=== PATIENT | female | born 1980 | race Caucasian/White ===

== ENCOUNTER 2017-05-11 23:29 | Emergency (ER) | payer OTHER ==
[~2017-05-11] VITALS: Ht 167.6 cm; Wt 78.2 kg
[~2017-05-11 23:29] MED LIST: ACETAMINOPHEN500 MG PO; ADVAIR HFA120 INHALA IH; CAFFEINE200 M1 PO; CHOLESTROL MED; CIPRO500 MG PO; FLAGYL500 MG PO; FLORASTOR250 MG PO; LEVAQUIN500 MG PO; MOTRIN600 MG PO; NICOTINE PATCH1 EAC2 TD; PAXIL10 MG PO; PAXIL40 MG PO; PERCOCET 5/31 TABLET PO; PHENERGAN-CODE120 ML PO; PREDNISONE10 MG PO; PROAIR HFA8.5 GM IH; PROMETHAZINE HC25 M1 PO; ROBITUSSIN AC,T10 ML PO; TYLENOL EXTRA500 MG PO; TYLENOL PM1 CAPLET PO
[2017-05-12 00:40] LABS: HEMATOCRIT 39.2 % (36.0-46.0); MCH 31.3 PG (29.0-34.0); MCHC 33.4 G/DL (30.0-36.0); MCV 93.6 FL (83-99); MEAN PLAT.VOLUME 9.5 uM^3 (9.5-12.4); PLATELET COUNT 430 K/uL (156-360); RBC DIS.WIDTH-CV 12.6 % (11.8-14.6); RBC DIS.WIDTH-SD 43.5 % (39-53); RED BLOOD COUNT 4.19 M/uL (3.80-5.20); WHITE BLOOD COUNT 14.6 K/uL (4.1-10.2)
[2017-05-12 01:05] LABS: QUANTITATIVE HCG < 4.0 MIU/ML
[2017-05-12 01:14] LABS: ADD MIUA? YES; BILIRUBIN NEGATIVE; BLOOD SMALL; COLOR STRAW ((YELLOW)); GLUCOSE (STRIP) NEGATIVE; KETONES NEGATIVE; LEUKOCYTES NEGATIVE; NITRITE NEGATIVE; PROTEIN (STRIP) NEGATIVE; SPECIFIC GRAVITY 1.005 (1.000-1.030); UROBILINOGEN 0.2 MG/DL (0.2-1.0)
[2017-05-12 01:37] LABS: BACTERIA RARE /HPF; EPITHELIAL CELLS RARE /HPF; MUCUS NONE SEEN /LPF; RED BLOOD CELLS 0-5 /HPF (0-5); UCUL ADDED? NO; WHITE BLOOD CELLS 0-5 /HPF (0-5)
[2017-05-12 01:39] LABS: ALKALINE PHOSPHATASE 76 IU/L (3-129); ANION GAP 10 MEQ/L (2-14); CHLORIDE 108 MEQ/L (99-109); GFR ESTIMATE (CALCULATED) > 59 mL/min/; GLUCOSE 85 mg/dL (70-99); POTASSIUM 3.4 MEQ/L (3.7-5.4); SAMPLE HEMOLYSIS CHECK 0; SAMPLE ICTERIC CHECK 0; SAMPLE LIPEMIA CHECK 0; SODIUM 141 MEQ/L (136-147); TOTAL BILIRUBIN 0.2 MG/DL (0.0-1.0); UREA NITROGEN (BUN) 9 mg/dL (9-23)
[2017-05-12] MEDS ORDERED: ZANTAC300 MG PO (03:02)
[2017-05-12] MEDS ORDERED: NEXIUM20 MG PO (03:02)
[2017-05-12 03:08] LABS: SALICYLATE 10.5 MG/DL (15-30)
[2017-05-12 03:09] LABS: LIPASE 25 U/L (1.0-51.0)
[2017-05-12 04:00] VITALS: BP 131/78
== END 2017-05-12 04:16 | disposition home or self-care (01) ==
LOC: EME 23:29
DX: R10.10 Upper abdominal pain, unspecified (principal); F17.200 Nicotine dependence, unspecified, uncomplicated; F41.9 Anxiety disorder, unspecified; F32.9 Major depressive disorder, single episode, unspecified
CPT/HCPCS: 80053; 81003; 83690; 84702; 85027; 99281; 99284; G0480

== ENCOUNTER 2018-01-08 21:44 | Emergency (ER) | payer OTHER ==
[~2018-01-08] VITALS: Ht 167.6 cm; Wt 80.5 kg
[~2018-01-08 21:44] MED LIST changes: +NEXIUM20 MG PO; +ZANTAC300 MG PO
[2018-01-08] MEDS ORDERED: GABAPENTIN100 MG PO (22:01)
[2018-01-08] MEDS ORDERED: VENTOLIN HFA18 GM IH (22:02)
[2018-01-08] MEDS ORDERED: ESCITALOPRAM OXA5 MG PO (22:02)
[2018-01-08] MEDS ORDERED: MEDROL DOSEPAK4 MG PO (23:35)
[2018-01-08] MEDS ORDERED: ZITHROMAX Z-PA250 MG PO (23:35)
[2018-01-08 23:47] VITALS: BP 151/83
== END 2018-01-08 23:49 | disposition home or self-care (01) ==
LOC: EME 21:44
DX: J20.9 Acute bronchitis, unspecified (principal); F32.9 Major depressive disorder, single episode, unspecified; F41.9 Anxiety disorder, unspecified; F17.210 Nicotine dependence, cigarettes, uncomplicated; Z79.51 Long term (current) use of inhaled steroids; Z87.01 Personal history of pneumonia (recurrent)
CPT/HCPCS: 71046; 94640; 94640 76; 99281; 99284; J7512

== ENCOUNTER 2018-01-14 14:00 | Emergency (ER) | payer OTHER ==
[~2018-01-14] VITALS: Ht 167.6 cm; Wt 79.9 kg
[~2018-01-14 14:00] MED LIST changes: +ESCITALOPRAM OXA5 MG PO; +GABAPENTIN100 MG PO; +MEDROL DOSEPAK4 MG PO; +VENTOLIN HFA18 GM IH; +ZITHROMAX Z-PA250 MG PO
[2018-01-14 14:54] LABS: BASOPHIL (%) 0.3 % (0-1); BASOPHIL COUNT 0.1 K/uL (0-0.1); EOSINOPHIL (%) 0.1 % (0-5); HEMATOCRIT 42.5 % (36.0-46.0); HEMOGLOBIN 14.2 G/DL (11.9-15.5); IMMATURE GRANULOCYTE (%) 0.8 % (0.0-0.7); LYMPHOCYTE (%) 12.1 % (15-42); LYMPHOCYTE COUNT 2.8 K/uL (1.0-2.8); MCH 33.6 PG (29.0-34.0); MCHC 33.4 G/DL (30.0-36.0); MCV 100.7 FL (83-99); MONOCYTE (%) 2.9 % (3-12); MONOCYTE COUNT 0.7 K/uL (0-0.8); NEUTROPHIL (%) 83.8 % (45-76); NEUTROPHIL COUNT 19.7 K/uL (1.8-6.4); PLATELET COUNT 481 K/uL (156-360); RBC DIS.WIDTH-CV 12.6 % (11.8-14.6); RBC DIS.WIDTH-SD 47.1 % (39-53); RED BLOOD COUNT 4.22 M/uL (3.80-5.20); WHITE BLOOD COUNT 23.5 K/uL (4.1-10.2)
[2018-01-14 15:03] LABS: ALBUMIN 4.6 g/dL (3.2-4.8); CHLORIDE 103 mEq/L (99-109); SODIUM 139 mEq/L (136-147)
[2018-01-14 15:04] LABS: MAGNESIUM 2.5 mg/dL (1.3-2.7)
[2018-01-14 15:06] LABS: GLUCOSE 132 mg/dL (70-99); TOTAL PROTEIN 7.8 g/dL (6.4-8.3)
[2018-01-14 15:08] LABS: TOTAL BILIRUBIN 0.2 mg/dL (0.0-1.0)
[2018-01-14 15:09] LABS: ALKALINE PHOSPHATASE 93 IU/L (3-129)
[2018-01-14 15:10] LABS: CREATININE 0.8 mg/dL (0.6-1.3); GFR ESTIMATE (CALCULATED) > 59 mL/min/
[2018-01-14 15:11] LABS: AST (GOT) 11 IU/L (2-34); UREA NITROGEN (BUN) 17 mg/dL (9-23)
[2018-01-14 15:13] LABS: ALT (GPT) 13 IU/L (3-49)
[2018-01-14 15:16] LABS: TROP-I INTERPRETATION NEGATIVE; TROPONIN-I < 0.01 ng/mL (0.0-0.30)
[2018-01-14 15:18] LABS: QUANTITATIVE HCG < 4.0 MIU/ML
[2018-01-14] MEDS ORDERED: PREDNISONE20 MG PO (18:03)
[2018-01-14 18:11] VITALS: BP 135/72
== END 2018-01-14 18:11 | disposition home or self-care (01) ==
LOC: EME 14:00
PROVIDERS: Emergency Medicine
DX: J44.1 Chronic obstructive pulmonary disease with (acute) exacerbation (principal); F41.9 Anxiety disorder, unspecified; F17.210 Nicotine dependence, cigarettes, uncomplicated; F32.9 Major depressive disorder, single episode, unspecified
CPT/HCPCS: 71046; 80053; 83735; 84484; 84702; 85025; 93005; 99281; 99284; J2060

== ENCOUNTER 2018-02-22 13:27 | Emergency (ER) | payer OTHER ==
[~2018-02-22] VITALS: Ht 167.6 cm; Wt 86.1 kg
[~2018-02-22 13:27] MED LIST changes: +PREDNISONE20 MG PO
[2018-02-22] MEDS ORDERED: PERIDEX473 ML MM (16:23)
[2018-02-22] MEDS ORDERED: PEN-VEE K,VEET500 MG PO (16:23)
[2018-02-22] MEDS ORDERED: ULTRAM50 MG PO (16:23)
[2018-02-22 16:46] VITALS: BP 157/83
== END 2018-02-22 16:47 | disposition home or self-care (01) ==
LOC: EME 13:27
DX: K04.7 Periapical abscess without sinus (principal); K02.9 Dental caries, unspecified; F17.200 Nicotine dependence, unspecified, uncomplicated
CPT/HCPCS: 99281; 99284

== ENCOUNTER 2018-02-27 01:32 | Emergency (ER) | payer OTHER ==
[~2018-02-27] VITALS: Ht 167.6 cm; Wt 85.6 kg
[~2018-02-27 01:32] MED LIST changes: +PEN-VEE K,VEET500 MG PO; +PERIDEX473 ML MM; +ULTRAM50 MG PO
[2018-02-27] MEDS ORDERED: SEROQUEL100 MG PO (02:35)
[2018-02-27 02:51] LABS: HEMATOCRIT 37.8 % (36.0-46.0); HEMOGLOBIN 13.1 G/DL (11.9-15.5); MCH 33.8 PG (29.0-34.0); MCHC 34.7 G/DL (30.0-36.0); MCV 97.4 FL (83-99); PLATELET COUNT 419 K/uL (156-360); RBC DIS.WIDTH-SD 43.6 % (39-53); RED BLOOD COUNT 3.88 M/uL (3.80-5.20)
[2018-02-27 03:31] LABS: CHLORIDE 107 MEQ/L (99-109); CREATININE 0.8 MG/DL (0.6-1.3); GFR ESTIMATE (CALCULATED) > 59 mL/min/; GLUCOSE 95 mg/dL (70-99); POTASSIUM 3.3 MEQ/L (3.7-5.4); SODIUM 139 MEQ/L (136-147); UREA NITROGEN (BUN) 4 mg/dL (9-23)
[2018-02-27 03:34] LABS: QUANTITATIVE HCG < 4.0 MIU/ML
[2018-02-27 04:00] VITALS: BP 125/82
== END 2018-02-27 04:00 | disposition home or self-care (01) ==
LOC: EME → EDBD 01:32 → EME 04:00
PROVIDERS: Emergency Medicine
DX: F45.8 Other somatoform disorders (principal); E87.6 Hypokalemia; F41.9 Anxiety disorder, unspecified; F32.9 Major depressive disorder, single episode, unspecified; J45.909 Unspecified asthma, uncomplicated; F17.200 Nicotine dependence, unspecified, uncomplicated
CPT/HCPCS: 71045; 80048; 84702; 85027; 93005; 99281; 99284; J1630

== ENCOUNTER 2018-03-20 17:38 | Emergency (ER) | payer OTHER ==
[~2018-03-20] VITALS: Ht 167.6 cm; Wt 83.2 kg
[~2018-03-20 17:38] MED LIST changes: +SEROQUEL100 MG PO
[2018-03-20 18:18] LABS: HEMATOCRIT 41.6 % (36.0-46.0); HEMOGLOBIN 14.3 G/DL (11.9-15.5); MCHC 34.4 G/DL (30.0-36.0); MCV 98.8 FL (83-99); PLATELET COUNT 374 K/uL (156-360); RBC DIS.WIDTH-CV 11.6 % (11.8-14.6); RBC DIS.WIDTH-SD 42.2 % (39-53); RED BLOOD COUNT 4.21 M/uL (3.80-5.20); WHITE BLOOD COUNT 12.8 K/uL (4.1-10.2)
[2018-03-20 18:33] LABS: ALBUMIN 4.5 g/dL (3.2-4.8); CHLORIDE 100 mEq/L (99-109); POTASSIUM 4.7 mEq/L (3.7-5.4); SODIUM 135 mEq/L (136-147)
[2018-03-20 18:35] LABS: GLUCOSE 90 mg/dL (70-99); TOTAL PROTEIN 7.8 g/dL (6.4-8.3)
[2018-03-20 18:37] LABS: TOTAL BILIRUBIN 0.1 mg/dL (0.0-1.0)
[2018-03-20 18:39] LABS: ALKALINE PHOSPHATASE 101 IU/L (3-129); GFR ESTIMATE (CALCULATED) > 59 mL/min/
[2018-03-20 18:40] LABS: UREA NITROGEN (BUN) 10 mg/dL (9-23)
[2018-03-20 18:41] LABS: AST (GOT) 15 IU/L (2-34)
[2018-03-20 18:42] LABS: ALT (GPT) 14 IU/L (3-49); CREATINE KINASE 114 IU/L (1-294)
[2018-03-20 18:51] LABS: QUANTITATIVE HCG < 4.0 MIU/ML
[2018-03-20] MEDS ORDERED: ATARAX,VISTARIL50 MG PO (21:10)
[2018-03-20 21:47] VITALS: BP 123/76
== END 2018-03-20 21:56 | disposition home or self-care (01) ==
LOC: EME 17:38
PROVIDERS: Physician Assistant
DX: F41.9 Anxiety disorder, unspecified (principal); F13.239 Sedative, hypnotic or anxiolytic dependence with withdrawal, unspecified; F32.9 Major depressive disorder, single episode, unspecified; F17.200 Nicotine dependence, unspecified, uncomplicated
CPT/HCPCS: 80053; 82550; 84702; 85027; 99281; 99284; Q0177

== ENCOUNTER 2018-03-23 12:42 | Emergency (ER) | payer OTHER ==
[~2018-03-23] VITALS: Ht 167.6 cm; Wt 82.9 kg
[~2018-03-23 12:42] MED LIST changes: +ATARAX,VISTARIL50 MG PO
[2018-03-23 15:05] LABS: HEMATOCRIT 41.8 % (36.0-46.0); HEMOGLOBIN 14.5 G/DL (11.9-15.5); MCH 33.8 PG (29.0-34.0); MCHC 34.7 G/DL (30.0-36.0); MCV 97.4 FL (83-99); PLATELET COUNT 392 K/uL (156-360); RBC DIS.WIDTH-CV 11.8 % (11.8-14.6); RBC DIS.WIDTH-SD 42.6 % (39-53); RED BLOOD COUNT 4.29 M/uL (3.80-5.20); WHITE BLOOD COUNT 13.2 K/uL (4.1-10.2)
[2018-03-23 15:11] LABS: ALBUMIN 4.4 g/dL (3.2-4.8)
[2018-03-23 15:12] LABS: CHLORIDE 107 mEq/L (99-109); POTASSIUM 4.4 mEq/L (3.7-5.4); SODIUM 140 mEq/L (136-147)
[2018-03-23 15:14] LABS: GLUCOSE 77 mg/dL (70-99); TOTAL PROTEIN 7.5 g/dL (6.4-8.3)
[2018-03-23 15:17] LABS: ALKALINE PHOSPHATASE 85 IU/L (3-129); TOTAL BILIRUBIN 0.3 mg/dL (0.0-1.0)
[2018-03-23 15:18] LABS: CREATININE 0.7 mg/dL (0.6-1.3); GFR ESTIMATE (CALCULATED) > 59 mL/min/
[2018-03-23 15:19] LABS: AST (GOT) 12 IU/L (2-34); UREA NITROGEN (BUN) 10 mg/dL (9-23)
[2018-03-23 15:21] LABS: ALT (GPT) 10 IU/L (3-49)
[2018-03-23 15:28] LABS: QUANTITATIVE HCG < 4.0 MIU/ML
[2018-03-23 16:06] LABS: APPEARANCE CLEAR ((CLEAR)); BILIRUBIN NEGATIVE; BLOOD NEGATIVE; COLOR STRAW ((YELLOW)); GLUCOSE (STRIP) NEGATIVE; KETONES NEGATIVE; LEUKOCYTES TRACE; NITRITE NEGATIVE; PROTEIN (STRIP) NEGATIVE; SPECIFIC GRAVITY 1.006 (1.000-1.030); UROBILINOGEN 0.2 MG/DL (0.2-1.0)
[2018-03-23 16:09] LABS: BACTERIA NONE SEEN /HPF; EPITHELIAL CELLS RARE /HPF; MUCUS TRACE /LPF; RED BLOOD CELLS 0-5 /HPF (0-5); UCUL ADDED? NO; WHITE BLOOD CELLS 0-5 /HPF (0-5)
[2018-03-23] MEDS ORDERED: TORADOL10 MG PO (16:32)
[2018-03-23] MEDS ORDERED: REGLAN5 MG PO (16:32)
[2018-03-23 17:02] VITALS: BP 130/59
== END 2018-03-23 17:04 | disposition home or self-care (01) ==
LOC: EME 12:42
DX: R51 Headache (principal); R20.2 Paresthesia of skin; R42 Dizziness and giddiness; R19.7 Diarrhea, unspecified; H53.8 Other visual disturbances; J45.909 Unspecified asthma, uncomplicated; F17.200 Nicotine dependence, unspecified, uncomplicated
CPT/HCPCS: 70450; 71046; 80053; 81003; 84702; 85027; 99281; 99284